=== PATIENT | male | born 1975 | race African-American/Black ===

== ENCOUNTER 2023-02-11 09:10 | Outpatient (CLI) | payer BC | END 2023-02-11 09:11 | disposition home or self-care (01) | LOC: TBSIIMAG 09:10 | PROVIDERS: ATTEND Orthopaedic Surgery Hand Surgery | DX: D17.79 Benign lipomatous neoplasm of other sites (principal); M24.631 Ankylosis, right wrist; M94.8X2 Other specified disorders of cartilage, upper arm ==